=== PATIENT | male | born 1935 | race Caucasian/White ===

== ENCOUNTER 2021-02-15 15:58 | Inpatient (IN) | payer MEDICARE, OTHER ==
[2021-02-15 16:25] LABS: #Eosinphils 0.1 thou/uL (0.0-0.7); #Lymphocytes 1.3 thou/uL (1.20-3.40); #Monocytes 0.3 thou/uL (0.11-0.59); #Neutrophils 1.5 thou/uL (1.40-6.50); %Basophils 0.3 % (0.0-1.0); %Eosinophils 1.8 % (0.0-10.0); %Lymphocytes 40.7 % (21.0-51.0); %Monocytes 9.7 % (0.0-10.0); %Neutrophils 47.5 % (42.0-75.0); Hemoglobin 11.2 g/dL (14.0-18.0); Mean Corpuscular HGB CONC 33.7 g/dL (32.0-36.0); Mean Corpuscular Hemoglobin 31.3 pg (27.0-31.0); Mean Corpuscular Volume 92.9 fL (78.0-98.0); Mean Platelet Volume 6.4 fL (7.4-10.4); Platelet Count 240 thou/uL (130-400); RBC Distribution Width 13.4 % (11.5-14.5); Red Blood Cell (RBC) Count 3.58 mill/uL (4.70-6.10); White Blood Cell (WBC) Count 3.1 thou/uL (4.8-10.8)
[2021-02-15 16:41] LABS: Bilirubin Negative (Negative); Blood, Urine Negative (Negative); Clarity Clear (Clear); Glucose, Urine (Dipstick) Normal (Negative); Ketone, Urine Negative (Negative); Leukocyte Negative Leu/uL (Negative); Nitrite Negative (Negative); Protein, Urine (Dipstick) Negative (Neg-Trace); Specific Gravity, Urine 1.012 (1.002-1.036); Urobilinogen Normal mg/dL (Less than 2)
[2021-02-15 16:46] LABS: ALT (SGPT) Less than 7 U/L (8-55); AST (SGOT) 14 U/L (5-34); Albumin 3.2 g/dL (3.4-4.8); Alkaline Phosphatase 53 U/L (40-110); Anion Gap 11 mmol/L (10-20); BUN (Urea Nitrogen) 7 mg/dL (8.4-25.7); Bilirubin, Total 0.3 mg/dL (0.2-1.2); Calc. Creatinine Clearance 0 mL/min (70-130); Calcium 8.3 mg/dL (7.8-10.44); Carbon Dioxide 23 mmol/L (23-31); Chloride 98 mmol/L (98-107); Globulin 2.6 g/dL (2.4-3.5); Glucose 123 mg/dL (83-110); Potassium 4.3 mmol/L (3.5-5.1); Protein, Total 5.8 g/dL (5.8-8.1); Sodium 128 mmol/L (136-145)
[2021-02-15] MEDS ORDERED: traMADol HCl 50 MG TAB PO SCH (21:45)
[2021-02-15 22:24] LABS: Hemoglobin A1c 5.1 % (4.0-6.0)
[2021-02-15] MEDS: Famotidine 20 MG TAB PO SCH (22:50)
[2021-02-16] MEDS ORDERED: Rivaroxaban 15 MG TAB PO SCH (00:15)
[2021-02-16 01:20] VITALS: BMI 17.4
[2021-02-16 04:54] LABS: #Basophils 0.1 thou/uL (0.0-0.2); #Eosinphils 0.1 thou/uL (0.0-0.7); #Lymphocytes 1.4 thou/uL (1.20-3.40); #Monocytes 0.3 thou/uL (0.11-0.59); #Neutrophils 2.3 thou/uL (1.40-6.50); %Basophils 1.2 % (0.0-1.0); %Eosinophils 2.5 % (0.0-10.0); %Lymphocytes 34.1 % (21.0-51.0); %Neutrophils 54.3 % (42.0-75.0); Hemoglobin 11.3 g/dL (14.0-18.0); Mean Corpuscular HGB CONC 33.8 g/dL (32.0-36.0); Mean Corpuscular Hemoglobin 31.4 pg (27.0-31.0); Mean Corpuscular Volume 93.1 fL (78.0-98.0); Mean Platelet Volume 6.5 fL (7.4-10.4); Platelet Count 253 thou/uL (130-400); RBC Distribution Width 13.7 % (11.5-14.5); White Blood Cell (WBC) Count 4.2 thou/uL (4.8-10.8)
[2021-02-16 05:14] LABS: Anion Gap 9 mmol/L (10-20); BUN (Urea Nitrogen) 7 mg/dL (8.4-25.7); Calc. Creatinine Clearance 53 mL/min (70-130); Calcium 8.4 mg/dL (7.8-10.44); Carbon Dioxide 27 mmol/L (23-31); Cardiac Risk 3.9 (Less than 4.5); Chloride 99 mmol/L (98-107); Cholesterol 136 mg/dl (< 200 Desired); Glucose 109 mg/dL (83-110); HDL Cholesterol 35 mg/dL (>60 Neg Risk); LDL Cholesterol, Calculated 92 mg/dL; Potassium 4.3 mmol/L (3.5-5.1); Sodium 131 mmol/L (136-145); Triglycerides 47 mg/dL (Less than 150)
[2021-02-16] MEDS: Levothyroxine Sodium 25 MCG TAB PO SCH (06:08)
[2021-02-16] MEDS: Levothyroxine Sodium 112 MCG TAB PO SCH (06:08)
[2021-02-16] MEDS: Mirtazapine 15 MG Soltab PO SCH ×4 (06:09→18:53)
[2021-02-16] MEDS ORDERED: Iopamidol-370 76% 500 ML 1 ML ONE (08:24)
[2021-02-16] MEDS ORDERED: Aspirin 81 mg Enteric Coated Tablet PO SCH (09:00)
[2021-02-16] MEDS ORDERED: CEVIMELINE HCL 30 MG PO SCH (09:00)
[2021-02-16] MEDS ORDERED: MAGNESIUM CHLORIDE 71.5 MG PO SCH (09:00)
[2021-02-16] MEDS ORDERED: PREDNISOLONE L EYE SCH (09:00)
[2021-02-16] MEDS ORDERED: GENTAMICIN L EYE SCH (09:00)
[2021-02-16] MEDS ORDERED: Non-Formulary Item 1 EACH (Levothyroxine Sodium [Levothyroxine] 137 MCG Capsule) PO SCH (09:00)
[2021-02-16 09:18] LABS: SARS-CoV-2 PCR by NAA Not Detected (NotDetected)
[2021-02-16] MEDS: Zinc Sulfate 220 MG CAP PO SCH (10:17)
[2021-02-16] MEDS: Cholecalciferol 1,000 UNITS (25 MCG) TAB PO SCH (10:17)
[2021-02-16] MEDS: Aspirin Chewable 81 MG TAB PO SCH (10:18)
[2021-02-16] MEDS: sulfaSALAzine 500 MG TAB PO SCH ×2 (10:18→21:18)
[2021-02-16] MEDS: Ascorbic Acid 500 mg Chewable Tablet PO SCH (10:18)
[2021-02-16] MEDS: Finasteride 5 MG TAB PO SCH (10:18)
[2021-02-16] MEDS: Famotidine 20 MG TAB PO SCH ×2 (10:18→21:18)
[2021-02-16] MEDS: Sodium Chloride 1 GM TAB PO SCH ×3 (10:19→21:22)
[2021-02-16] MEDS: Polyvinyl Alcohol 1.4%/Povidone 0.6% Opth Drops EA EYE SCH ×2 (15:07→21:20)
[2021-02-16] MEDS: Liothyronine Sodium 5 MCG TAB PO SCH (17:22)
[2021-02-16] MEDS ORDERED: Mirtazapine 15 MG Soltab PO SCH (21:00)
[2021-02-16] MEDS ORDERED: Melatonin 3 MG TAB PO SCH (21:00)
[2021-02-16] MEDS ORDERED: traZODone HCl 50 MG TAB PO SCH ×2 (21:00)
[2021-02-17] MEDS: Levothyroxine Sodium 112 MCG TAB PO SCH (05:36)
[2021-02-17] MEDS: Levothyroxine Sodium 25 MCG TAB PO SCH (05:36)
[2021-02-17 07:12] LABS: #Basophils 0.1 thou/uL (0.0-0.2); #Eosinphils 0.1 thou/uL (0.0-0.7); #Lymphocytes 1.6 thou/uL (1.20-3.40); #Monocytes 0.3 thou/uL (0.11-0.59); #Neutrophils 3.2 thou/uL (1.40-6.50); %Basophils 1.1 % (0.0-1.0); %Eosinophils 1.6 % (0.0-10.0); %Lymphocytes 31.2 % (21.0-51.0); Hemoglobin 11.8 g/dL (14.0-18.0); Mean Corpuscular HGB CONC 33.2 g/dL (32.0-36.0); Mean Corpuscular Hemoglobin 30.8 pg (27.0-31.0); Mean Corpuscular Volume 92.8 fL (78.0-98.0); Mean Platelet Volume 6.4 fL (7.4-10.4); Platelet Count 245 thou/uL (130-400); RBC Distribution Width 13.8 % (11.5-14.5); Red Blood Cell (RBC) Count 3.81 mill/uL (4.70-6.10); White Blood Cell (WBC) Count 5.3 thou/uL (4.8-10.8)
[2021-02-17 07:31] LABS: Anion Gap 10 mmol/L (10-20); BUN (Urea Nitrogen) 7 mg/dL (8.4-25.7); Calc. Creatinine Clearance 57 mL/min (70-130); Calcium 8.4 mg/dL (7.8-10.44); Carbon Dioxide 27 mmol/L (23-31); Chloride 100 mmol/L (98-107); Glucose 99 mg/dL (83-110); Potassium 4.2 mmol/L (3.5-5.1); Sodium 133 mmol/L (136-145)
[2021-02-17] MEDS ORDERED: Rivaroxaban 15 MG TAB PO SCH (09:00)
[2021-02-17] MEDS: Cholecalciferol 1,000 UNITS (25 MCG) TAB PO SCH (09:34)
[2021-02-17] MEDS: Zinc Sulfate 220 MG CAP PO SCH (09:34)
[2021-02-17] MEDS: Famotidine 20 MG TAB PO SCH (09:34)
[2021-02-17] MEDS: Liothyronine Sodium 5 MCG TAB PO SCH (09:35)
[2021-02-17] MEDS: Finasteride 5 MG TAB PO SCH (09:35)
[2021-02-17] MEDS: sulfaSALAzine 500 MG TAB PO SCH (09:35)
[2021-02-17] MEDS: Sodium Chloride 1 GM TAB PO SCH (09:35)
[2021-02-17] MEDS: Ascorbic Acid 500 mg Chewable Tablet PO SCH (09:35)
[2021-02-17] MEDS: Aspirin Chewable 81 MG TAB PO SCH (09:35)
[2021-02-17 11:37] VITALS: BP 102/56; TEMP 97.8
[2021-02-17] MEDS: Polyvinyl Alcohol 1.4%/Povidone 0.6% Opth Drops EA EYE SCH (12:28)
== END 2021-02-17 14:12 | disposition home or self-care (01) | DRG 69 ==
LOC: ERS 15:58 → 2SE 18:44 → OBSVTOIN 02-17 11:49
PROVIDERS: ADMIT Family Medicine; ATTEND Family Medicine
DX: G45.9 Transient cerebral ischemic attack, unspecified (principal); E43 Unspecified severe protein-calorie malnutrition; E87.1 Hypo-osmolality and hyponatremia; Z68.1 Body mass index [BMI] 19.9 or less, adult; R41.0 Disorientation, unspecified; F03.90 Unspecified dementia, unspecified severity, without behavioral disturbance, psychotic disturbance, mood disturbance, and anxiety; F32.9 Major depressive disorder, single episode, unspecified; N40.0 Benign prostatic hyperplasia without lower urinary tract symptoms; E03.9 Hypothyroidism, unspecified; D72.819 Decreased white blood cell count, unspecified; G47.00 Insomnia, unspecified; Z20.822 Contact with and (suspected) exposure to COVID-19; R51.9 Headache, unspecified; R53.81 Other malaise; Z95.810 Presence of automatic (implantable) cardiac defibrillator; Z88.1 Allergy status to other antibiotic agents; Z88.8 Allergy status to other drugs, medicaments and biological substances
CPT/HCPCS: 36415; 36416; 70450; 70496; 70498; 71045; 80048; 80053; 80061; 81003; 83036; 83880; 84443; 84484; 85025; 85379; 85652; 86140; 87635; 93005; G0378; Q9967; U0003; U0005